=== PATIENT | female | born 1970 | race Hispanic/Latino ===

== ENCOUNTER 2016-05-20 09:32 | Emergency (ER) | payer OTHER ==
[~2016-05-20] VITALS: Ht 162.6 cm; Wt 90.9 kg
[2016-05-20 09:35] VITALS: BP 136/87; PULSE 90; RESP 15; O2SAT 98
--- NOTE | 2016-05-20 09:53 | ED.REPORT ---
HPI-General Illness Date of Service May 20, 2016 ED Provider: Ezequiel Padron MD 45yoF presents with a 4 day history of chest pain described as pressure and less so burning which comes and goes approximately 3-4 times randomly during the day and lasts for approximately 1 hour rated at 10/10 while the remaining periods of the day her chest pain is rated 5/10. The pain is made worse by deep inspiration. The patient states that she has had these same issues in the past and it typically lasts 1 week and goes away without medication. The patient also has a global headache which is made worse with bending forward and she denies pain in her neck. The patient denies cough, runny nose, sore throat fever or chills. The patient denies nausea/vomiting/diarrhea/constipation. She is currently not on any medication including no control. Her youngest daughter has been sick recently with what the PCP diagnosed as a likely viral URI. Nursing Notes Stated Complaint: CHEST PAIN Chief Complaint: Chest Pain Nursing Notes Reviewed: Yes Allergies: Coded Allergies: No Known Allergies (Verified , 06/30/03) Uncoded Allergies: No Known Allergies (Allergy, Unknown, 01/04/04) Scheduled Pantoprazole DR (Pantoprazole DR) 20 Mg Tablet.dr 20 MG PO BID General Time Seen by MD: 09:49 Chief Complaint Chest pain, Heartburn Hx Obtained From: Patient, Son Arrived By: Walk-in Sudden in Onset?: No Onset Occurred: 4 days ago Symptom Duration: Waxes and wanes Location: : Chest Quality: Heaviness, Pressure Radiation: : Does not radiate Severity: Current: Pain level 5 out of 10 Severity: Maximum: Pain level 10 out of 10 Recent Healthcare: No recent doctor visit, No recent hospitalization Similar Sx Previous: Yes Past Medical History Past Medical History broken right leg Smoking History Never Smoker Social History Alcohol Use: Denies alcohol use Drug Use: Denies drug use Ambulatory Status Independent Review of Systems Full Review of Systems Constitutional: Denies: Chills, Fever Eyes: Reports: Photophobia, Denies: Blurred bilateral, Discharge bilateral, Eye pain bilateral, Visual loss bilateral Ears / Nose / Throat: Denies: Ear ringing bilateral, Hearing loss bilateral, Sore throat, Throat pain Respiratory: Reports: Pleuritic pain, Denies: Hemoptysis, Non-productive cough Cardiovascular: Reports: Chest pain, Denies: Syncope GI: Denies: Abdominal pain, Constipation, Diarrhea, Nausea, Vomiting Female: Denies: Dysuria, Flank pain, Hematuria Musculoskeletal: Denies: Back pain, Extremity pain, Neck pain Hematologic: Denies Bleeding, Denies Bruising Endocrine: Denies: Polyuria Skin: Denies Bruising, Denies Rash, Denies Swelling Allergy / Immune: Denies: Hives, Rhinorrhea, Sneezing Neurologic: Reports: Headache, Denies: Dizziness, Lightheaded, Problem walking Psychiatric: Denies: Change mental status, Confusion Complete sys rev & neg: except as marked. Physical Exam Vital Signs Vital Signs Date Time Temp Pulse Resp B/P Pulse Ox O2 Delivery O2 Flow Rate FiO2 05/20/16 13:25 37 90 28 125/73 98 Room Air 05/20/16 09:35 36.2 90 15 136/87 98 Room Air Initial VS: Reviewed General/Constitutional: Well-developed, Well-nourished Head / Eyes: Atraumatic, Normocephalic, PERRL ENT: Mucous membranes moist, Conjunctiva normal, No scleral icterus Neck: Supple, Non-tender, Full range of motion Cardiovascular: Regular rate & rhythm, Heart sounds normal, Intact distal pulses Abdomen / GI: Soft, Non-tender, No guarding, No rebound, No distention Back: No CVA tenderness Lymphatic: No lymphadenopathy Extremities: Vascular intact, Neuro intact, No swelling, No tenderness Skin: Warm, Dry, No cyanosis Neurologic: Alert, Oriented, Nonfocal Psychiatric: Mood/affect normal, Behavior normal, Normal thought content General/Constitutional: Awake, Alert, No acute distress, Well nourished, Cooperative, Not toxic appearing Appearance / Presentation: Positive: Obese Head / Eyes: Normocephalic, PERRL ENT: Atraumatic, Airway patent, Mucous membranes moist, Nose exam NL Pharynx / Tonsils / Uvula: Positive: Tonsillar swelling L, Tonsillar swelling R , Negative: Peritonsil abscess L, Peritonsil abscess R, Tonsillar erythema L, Tonsillar erythema R, Tonsillar exudate L, Tonsillar exudate R Neck: Supple, No meningismus, Full range of motion, No swelling, Non-tender Respiratory / Chest: Breath sounds = bilat, No respiratory distress, No rhonchi , No wheezing, No chest tenderness, No chest wall deformity, No crepitus Rales / Rhonchi: Positive: Rales L base (occasional), Rales R base (occasional) Cardiovascular: Heart rate NL, Regular rhythm, Heart sounds NL, Cap refill not delayed, Peripheral circulation NL, Pulses = bilaterally Abdomen: Atraumatic, Soft, Non-tender, No guarding, No rebound, BS normoactive , No palpable mass, No pulsatile mass Adenopathy: Positive: Anterior cervical L, Anterior cervical R Interpretation & Diagnostics Lab Results Interpretation Result Diagram: 05/20/16 1012 05/20/16 1012 Test 05/20/16 10:12 White Blood Count 4.8th/mm3 (3.8-10.1) Red Blood Count 4.63mil/mm3 (3.90-5.20) Hemoglobin 12.8g/dL (12.0-15.6) Hematocrit 38.6% (35.0-46.0) Mean Corpuscular Volume 83.4fL (81-100) Mean Corpuscular Hemoglobin 27.6pg (27.0-35.0) Mean Corpuscular Hemoglobin Concent 33.2% (32.0-37.0) Red Cell Distribution Width 13.1% (12.3-15.4) Platelet Count 221bil/L (150-400) Neutrophils (%) (Auto) 62.3% (40-74) Lymphocytes (%) (Auto) 24.8% (14-46) Monocytes (%) (Auto) 9.2% (4-12) Eosinophils (%) (Auto) 3.1% (0-5) Basophils (%) (Auto) 0.4% (0-3) Sodium Level 136mEq/L (134-144) Potassium Level 3.6mEq/L (3.5-5.2) Chloride Level 98mEq/L (97-108) Carbon Dioxide Level 24mmol/L (18-29) Blood Urea Nitrogen 8mg/dL (6-24) Creatinine 0.60mg/dL (0.57-1.00) Estimat Glomerular Filtration Rate 156mL/min (>59) Glucose Level 153mg/dL (60-99) Calcium Level 8.5mg/dL (8.5-10.1) Magnesium Level 2.1mg/dL (1.6-2.6) Total Bilirubin 0.3mg/dL (0.0-1.2) Aspartate Amino Transf (AST/SGOT) 56U/L (0-50) Alanine Aminotransferase (ALT/SGPT) 76U/L (0-32) Alkaline Phosphatase 87U/L (25-150) Troponin T 0.010ug/L (0.0-0.011) Total Protein 7.3g/dL (6.4-8.4) Albumin 4.3g/dL (3.4-5.0) Re-Eval/Medical Decision Med Decision/Clinical Course 45yoF with no previous cardiac or pulmonary pathology presents with 4 days of chest pressure described as lasting 1 hour and recurring several times during the day. She has had this same presentation several times a year as well, which resolves without medication. EKG and troponins were negative for cardiac causes , CXR was negative for acute pulmonary processes. Patient stated that she felt better after a GI cocktail. Will discharge patient on protonix and have her follow up with PCP. Time of Eval: 12:02 Discharge & Departure Primary Impression: Non-cardiac chest pain Additional Impression: Gastroesophageal reflux Esophagitis presence: esophagitis presence not specified Qualified Code: K21.9 - Gastro-esophageal reflux disease without esophagitis Ruled Out: Myocardial infarction Disposition: Home Discharge Condition Condition: Stable Patient Instructions: Gastroesophageal Reflux Disease (ED) Additional Instructions: During you visit to [facility] we obtained blood work for infectious markers, hemoglobin levels, and electrolytes, and we obtained xray imaging of your chest. All your lab values were within normal limits and your imaging showed no acute processes or abnormalities. Given your symptoms and physical exam as well as the results of our blood work and EKG, your chest pain is not likely to be due to cardiac causes. You stated that you felt better after receiving a GI cocktail making gastroesophageal reflux the likely cause of your recurrent chest pain. Other possible but less likely causes include esophageal spasm. Your vital signs were stable and safe for discharge. We will send you home with: - Protonix to be taken twice daily for 7 weeks follow by onc daily for the final week of a two month course, this medication must not be stopped abruptly due to likely rebound acid reflux. Please discontinue this medication with the help of your PCP, by taking the medication just once a day for the last week of your second month of therapy. Do not hesitate to call emergency services or your primary care physician if you experience any of the following. - High unrelenting fevers. - Uncontrolled vomiting. - Severe hypertension or hypotension - dizziness or loss of consciousness. - Chest pain or severe shortness of breath. Please call your PCP Fidelia Novoa M.D. and schedule a follow up with your primary care physician in 1-2 weeks time following your emergency department visit for medication checks and general well-being. Given the fact that these symptoms commonly return several times a year it would behoove you to have your PCP work up the specific cause of your chest pain. Again given the improvement with a GI cocktail the most likely diagnosis is Gastroesophageal Reflux disease. Leobardo cooper [facility]a [facility] obtuvimos anlisis de zachery para marcadores infecciosos, niveles de hemoglobina y electrolitos, y obtuvimos brayden radiografa de cooper trax. Todos juli valores de laboratorio estaban dentro de los lmites normales y cooper imagen no mostr procesos agudos o anomalas. Dado juli sntomas y el examen fsico, as echo los resultados de nuestro trabajo de zachery y EKG, cooper dolor en el pecho no es probable que sea debido a causas cardacas. Usted declar que se senta mejor despus de recibir un cctel de GI haciendo reflujo gastroesofgico la causa probable de cooper dolor de pecho recurrente. Otras causas posibles madison menos probables incluyen espasmo esofgico. Juli signos vitales clay estables y seguros para el mekhi. Te enviaremos a casa con: - Protonix que debe tomarse dos veces al da leobardo 7 semanas y seguir por onc diariamente leobardo la ltima semana de un curso de dos meses, zak medicamento no debe detenerse abruptamente debido a un reflujo cido rebote probable. Deje de lane zak medicamento con la ayuda de cooper PCP, tomando la medicacin slo brayden vez al da leobardo la ltima semana del No dude en llamar a los servicios de emergencia oa cooper mdico de atencin primaria si experimenta alguno de los siguientes sntomas. - Fiebres implacables y elevadas. - Vmitos incontrolados. - Hipertensin grave o hipotensin - mareos o prdida del conocimiento. - Dolor en el pecho o falta de aire severa. Por favor llame a cooper PCP Fidelia Novoa M.D. y programe un seguimiento con cooper mdico de atencin primaria en 1-2 semanas despus de cooper visita al departamento de emergencia para chequeos de medicacin y bienestar general. Dado el hecho de que estos sntomas suelen regresar varias veces al ao, sera preferible que cooper PCP resolver la causa especfica de cooper dolor de pecho. Brayden vez ms, meri la mejora con un cctel GI, el diagnstico ms probable es la enfermedad por reflujo gastroesofgico. Referrals: [facility] (PCP) Fidelia Novoa MD EDSupervising Provider for APC: Ezequiel Padron MD Attending Statement Attending attestation: I saw this patient in conjunction with the above named resident. I was present for all lara portions of the history taking and physical examination. I agree with the workup, evaluation, treatment and disposition. Ezequiel Padron MD copies to: Fidelia Novoa MD, Beck O MD May 20, 2016 09:53 Heriberto Rodriguez DO May 20, 2016 10:48 MATT MATOS May 20, 2016 12:02
[2016-05-20 10:25] LABS: BASOPHILS % (AUTO) 0.4 % (0-3); EOSINOPHILS % (AUTO) 3.1 % (0-5); MONOCYTES % (AUTO) 9.2 % (4-12); Mean Corpuscular Hemoglobin 27.6 pg (27.0-35.0); Mean Corpuscular Volume 83.4 fL (81-100); NEUTROPHILS % (AUTO) 62.3 % (40-74); Platelet Count 221 bil/L (150-400)
[2016-05-20] MEDS ORDERED: Donnatal-Lido-Mylant 1:1:1 15 mL Syringe PO ONE (10:35)
--- NOTE | 2016-05-20 10:46 | DRSVH ---
PROCEDURE: X-RAY CHEST ONE VIEW, PORTABLE ([id number]) INDICATIONS: Chest pain TECHNIQUE: One view of the chest was acquired. COMPARISON: [facility], CR, CHEST 2VW, 01/15/2014, 23:38. FINDINGS: Surgical changes and devices: None. Lungs and pleura: No pleural effusions or pneumothorax. Lungs are clear. Mediastinum: Mediastinal contours appear normal. Heart size is normal. Bones and chest wall: No suspicious bony lesions. Overlying soft tissues appear unremarkable. IMPRESSION: 1. No acute cardiopulmonary disease. Dictated by: Ernesto Key M.D. on 05/20/2016 at 10:43 Approved by: Ernesto Key M.D. on 05/20/2016 at 10:44
[2016-05-20 10:57] LABS: TROPONIN T 0.01 ug/L (0.0-0.011)
[2016-05-20 11:08] LABS: Magnesium 2.1 mg/dL (1.6-2.6)
[2016-05-20] MEDS ORDERED: PANT20TA2 PO (12:18)
[2016-05-20 13:25] VITALS: BP 125/73; PULSE 90; RESP 28; O2SAT 98
== END 2016-05-20 13:25 | disposition home or self-care (01) ==
LOC: SED 09:32
DX: K21.9 Gastro-esophageal reflux disease without esophagitis (principal); R07.9 Chest pain, unspecified